=== PATIENT | female | born 2000 | race Two or more races ===

== ENCOUNTER 2020-10-22 14:01 | Outpatient (CLI) | payer OTHER | END 2020-10-22 14:02 | disposition home or self-care (01) | LOC: LAB.N 14:01 | PROVIDERS: ATTEND Advanced Practice Midwife | DX: O20.9 Hemorrhage in early pregnancy, unspecified (principal) | CPT/HCPCS: 36415; 84702; 86900; 86901 ==

== ENCOUNTER 2020-10-24 14:55 | Outpatient (CLI) | payer OTHER | END 2020-10-24 14:56 | disposition home or self-care (01) | LOC: LAB.N 14:55 | PROVIDERS: ATTEND Nurse Practitioner Obstetrics & Gynecology | DX: O20.9 Hemorrhage in early pregnancy, unspecified (principal) | CPT/HCPCS: 36415; 84702 ==

== ENCOUNTER 2020-10-27 12:44 | Outpatient (CLI) | payer OTHER | END 2020-10-27 12:45 | disposition home or self-care (01) | LOC: LAB.N 12:44 | PROVIDERS: ATTEND Nurse Practitioner Obstetrics & Gynecology | DX: O20.9 Hemorrhage in early pregnancy, unspecified (principal); O36.80X0 Pregnancy with inconclusive fetal viability, not applicable or unspecified | CPT/HCPCS: 36415; 84702 ==

== ENCOUNTER 2020-10-30 18:55 | Outpatient (CLI) | payer OTHER ==
--- NOTE | 2020-10-31 08:56 | Ultrasound Report ---
PROCEDURE: OB First Trimester w/TV INDICATIONS: VAGINAL BLEEDING FIRST TRIMESTER OUTSIDE/PRIOR DATING DATA: Last menstrual period (LMP): 09/16/2019. LMP-based estimated date of delivery (GISELE): 06/23/2020. First dating scan (date and location): 10/30/2020. Estimated date of delivery (GISELE) from first dating scan: 06/24/2021. TECHNIQUE: Real-time scanning was performed of the fetus and maternal pelvic organs, with image documentation. Endovaginal scanning was also performed to better visualize the fetus and maternal ovaries. COMPARISON: None FINDINGS: Embryo: Dichorionic diamniotic, twin intrauterine gestation is identified. Fetus A demonstrates crown -rump length of 4.4 mm measuring 6 weeks 1 day. Fetus B measures crown-rump length measuring 3.9 mm c orresponding to 6 weeks 0 days. Fetus B has a heart rate of 118 bpm. Fetus A has no detectable heart rate. There is a superior and inferior focus of subchorionic hemorrhage measuring 9 x 8 x 14 mm and 15 x 9 x 14 mm respectively. Measurement variability in dating: +/- 4 weeks by LMP, +/- 7 days by mean sac diameter (use before 6 weeks gestation if crown-rump length not able to be measured), +/- 5 days by crown-rump length (6-12 weeks gestation). Maternal organs: Ovaries demonstrate a right corpus luteal cyst. Cervix is closed.. IMPRESSION: Dichorionic diamnionic twin gestation. Fetus A and B have ultrasound gestational ages of 6 weeks 1 day 6 weeks 0 days respectively. It is no nanda that no heart tone is identified within fetus A. recommend correlation of beta hCG levels and one -week interval follow-up is recommended for further evaluation of Fetus A heart tones. Reviewed by: Jasmyn Fajardo MD on 10/31/2020 8:55 AM PDT Approved by: Jasmyn Fajardo MD on 10/31/2020 8:55 AM PDT Station ID: [id number]
== END 2020-10-30 18:56 | disposition home or self-care (01) ==
LOC: DI 18:55
PROVIDERS: ATTEND Nurse Practitioner Obstetrics & Gynecology
DX: O20.9 Hemorrhage in early pregnancy, unspecified (principal); O30.041 Twin pregnancy, dichorionic/diamniotic, first trimester; O34.81 Maternal care for other abnormalities of pelvic organs, first trimester; N83.11 Corpus luteum cyst of right ovary; Z3A.01 Less than 8 weeks gestation of pregnancy

== ENCOUNTER 2020-10-31 08:00 | Outpatient (CLI) | payer OTHER ==
[2020-10-31 18:45] LABS: MUDS CUTOFF CONCENTRATIONS CUTOFF CONC BELOW:
[2020-10-31 18:58] LABS: BILIRUBIN,URINE NEGATIVE (NEGATIVE); GLUCOSE, URINE (UA) NEGATIVE (NEGATIVE); KETONES,URINE (UA) NEGATIVE (NEGATIVE); LEUKOCYTE ESTERASE, URINE NEGATIVE (NEGATIVE); NITRITE,URINE NEGATIVE (NEGATIVE); OCCULT BLOOD,URINE NEGATIVE (NEGATIVE); PROTEIN,URINE NEGATIVE (NEGATIVE); UROBILINOGEN,URINE 0.2 (NORMAL) E.U./dL (NORMAL)
[2020-10-31 19:00] LABS: CLARITY,URINE CLEAR (CLEAR)
[2020-10-31 19:17] LABS: BACTERIA,URINE None Seen /HPF (None Seen); RBC,URINE None Seen /HPF (0-5); SQUAMOUS EPITHELIAL CELL,UR RARE Squamous (<= Few); WBC,URINE 0-3 /HPF (0-5)
[2020-10-31 19:38] LABS: AMPHETAMINE SCREEN,URINE NEGATIVE (NEGATIVE); BARBITURATE SCREEN,UR NEGATIVE (NEGATIVE); BENZODIAZEPINES SCREEN, URINE NEGATIVE (NEGATIVE); COCAINE SCREEN URINE NEGATIVE (NEGATIVE); METHADONE SCREEN, URINE NEGATIVE (NEGATIVE); METHAMPHETAMINES SCREEN, URINE NEGATIVE (NEGATIVE); OPIATE SCREEN, URINE NEGATIVE (NEGATIVE); OXYCODONE SCREEN, URINE NEGATIVE (NEGATIVE); PROPOXYPHENE SCREEN, URINE NEGATIVE (NEGATIVE); THC CANNABINOID SCREEN, URINE NEGATIVE (NEGATIVE); TRICYCLIC ANTIDEPRESSANT,URINE NEGATIVE (NEGATIVE)
== END 2020-10-31 23:59 | disposition home or self-care (01) ==
LOC: LAB.R 08:00
PROVIDERS: ATTEND Advanced Practice Midwife
DX: O36.80X0 Pregnancy with inconclusive fetal viability, not applicable or unspecified (principal); O20.9 Hemorrhage in early pregnancy, unspecified
CPT/HCPCS: 80306; 81001; 87086

== ENCOUNTER 2020-11-06 16:33 | Outpatient (CLI) | payer OTHER ==
--- NOTE | 2020-11-07 08:25 | Ultrasound Report ---
PROCEDURE: OB First Trimester w/TV INDICATIONS: VAG BLEEDING IN 1ST TRIMESTER OUTSIDE/PRIOR DATING DATA: Last menstrual period (LMP): 09/16/2020. LMP-based estimated date of delivery (GISELE): 06/23/2021. First dating scan (date and location): 10/30/2020. Estimated date of delivery (GISELE) from first dating scan: 06/24/2021. TECHNIQUE: Real-time scanning was performed of the fetus and maternal pelvic organs, with image documentation. Endovaginal scanning was also performed to better visualize the fetus and maternal ovaries. COMPARISON: 10/30/2020 similar study FINDINGS: Embryo: [place]-rump length 4 mm correlates with a gestational age of 6 weeks 0 days, +/- 5 days. Feta l cardiac activity is observed at 118 bpm. Yolk sac is observed within the gestational sac. Measurement variability in dating: +/- 4 weeks by LMP, +/- 7 days by mean sac diameter (use before 6 weeks gestation if crown-rump length not able to be measured), +/- 5 days by crown-rump length (6-12 weeks gestation). Maternal organs: Ovaries normal considering gestational status.. IMPRESSION: Cardiac activity observed within the intrauterine gestation, with nodularity projected to be centered on 06/24/2021. Reviewed by: Florentin Medina MD on 11/07/2020 8:24 AM PDT Approved by: Florentin Medina MD on 11/07/2020 8:24 AM PDT Station ID: [id number]
== END 2020-11-06 16:34 | disposition home or self-care (01) ==
LOC: DI 16:33
PROVIDERS: ATTEND Advanced Practice Midwife
DX: O36.80X0 Pregnancy with inconclusive fetal viability, not applicable or unspecified (principal); O20.9 Hemorrhage in early pregnancy, unspecified; Z3A.01 Less than 8 weeks gestation of pregnancy

== ENCOUNTER 2020-11-25 18:43 | Outpatient (CLI) | payer MEDICAID ==
--- NOTE | 2020-11-25 20:39 | Ultrasound Report ---
PROCEDURE: OB First Trimester w/TV INDICATIONS: SUPERV HIGH RISK PREG, VAIBILITY AND FU VANISHING TWIN OUTSIDE/PRIOR DATING DATA: Last menstrual period (LMP): 10/04/2020. LMP-based estimated date of delivery (GISELE): 06/23/2021. First dating scan (date and location): 10/30/2020 per provider Alaina Pinedo. Estimated date of delivery (GISELE) from first dating scan: 06/24/2021 Estimated date of delivery (GISELE): 06/23/2021 (based on LMP, per patient's provider). TECHNIQUE: Real-time scanning was performed of the fetus and maternal pelvic organs, with image documentation. Endovaginal scanning was also performed to better visualize the fetus and maternal ovaries. COMPARISON: Ultrasound 11/06/2020 and 10/30/2020 FINDINGS: Embryo: Dichorionic diamniotic twin gestation is again seen. As on prior studies, no cardiac a ctivity is seen for twin A (located more anteriorly within the uterus). Twin A has a crown-rump lengt h of 5 mm, not significantly changed when compared to the exams from 10/30/2020 and 11/06/2020. A perig estational sac hemorrhage is seen adjacent to twin A measuring 1.3 x 0.8 x 1.5 cm Twin B (located more posteriorly within the uterus) does not demonstrate significant interval growth, with crown-rump length measuring 1.25 cm, compared to 1.14 cm previously. No heart rate is sujatha ntified for twin B on this study. Measurement variability in dating: +/- 4 weeks by LMP, +/- 7 days by mean sac diameter (use before 6 weeks gestation if crown-rump length not able to be measured), +/- 5 days by crown-rump length (6-12 weeks gestation). Maternal organs: Ovaries demonstrate a right corpus luteum cyst.. IMPRESSION: 1. Intrauterine twin is redemonstrated. 2. No cardiac activity is seen in twin B, which is new when compared to the ultrasound from , and is diagnostic for early failure. Twin B does not demonstrate significant inter katharine growth when compared to the prior ultrasound. 3. Twin A again does not demonstrate interval growth or cardiac activity. Perigestational sac hemorrhage again noted adjacent to twin A. Preliminary findings conveyed to the identification and records commander PCP, Cally BILL, by the subsurface augmentee operator at the [facility] of the exam. Reviewed by: Dayne Childress MD on 11/25/2020 8:38 PM PDT Approved by: Dayne Childress MD on 11/25/2020 8:38 PM PDT Station ID: [id number]
== END 2020-11-25 18:44 | disposition home or self-care (01) ==
LOC: DI 18:43
PROVIDERS: ATTEND Nurse Practitioner Obstetrics & Gynecology
DX: O09.891 Supervision of other high risk pregnancies, first trimester (principal)

== ENCOUNTER 2020-12-08 12:59 | Day surgery (SDC) | payer MEDICAID ==
[2020-12-08] MEDS ORDERED: SODIUM CHLORIDE 0.9% 1,000 ML IV STA (13:10)
[2020-12-08] MEDS ORDERED: HYDROmorphone 1 MG/ML CARPUJECT IVP STA ×2 (13:10→13:37)
--- NOTE | 2020-12-08 13:17 | ED Physician Documentation ---
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 Today started having heavy cramping and bleeding. She states that she has been followed by the [facility] clinic across the street. She states she is soaking through over a pad an hour. Review of Systems Ten Systems: 10 systems reviewed and negative Constitutional: denies: Fever, Chills GI: denies: Vomiting, Diarrhea Skin: denies: Rash Neurologic: denies: Headache PD PAST MEDICAL HISTORY - Past Medical History Past Medical History: No Endocrine/Autoimmune: Other - Past Surgical History Past Surgical History: No - Present Medications Home Medications: Ambulatory Orders Medication Instructions Recorded Confirmed Docusate Sodium Oral Soln [Colace] 100 mg PO BID #20 udc 12/17/13 polyethylene glycoL 3350 [Miralax] 17 gm PO DAILY #1 bottle 12/17/13 Acetaminophen [Acetaminophen Extra 1,000 mg PO Q8H PRN #60 tablet 12/08/20 Strength] Docusate Sodium 100Mg Capsule 100 - 200 mg PO BID PRN #60 cap 12/08/20 [Colace 100Mg Capsule] Doxycycline Monohydrate [Avidoxy] 200 mg PO ONCE #2 tablet 12/08/20 Ibuprofen [Motrin] 600 mg PO Q6H PRN #60 tab 12/08/20 oxyCODONE [Roxicodone] 2.5 - 5 mg PO Q4H PRN #10 tablet 12/08/20 - Allergies Allergies/Adverse Reactions: Allergies Allergy/AdvReac Type Severity Reaction Status Date / Time No Known Drug Allergies Allergy Verified 12/08/20 13:04 - Social History Does the pt smoke?: No Smoking Status: Never smoker Does the pt drink ETOH?: No Does the pt have substance abuse?: No - Immunizations Immunizations are current?: Yes Immunizations: TDAP current <10years - POLST Patient has POLST: No PD ED PE NORMAL - Vitals Vital signs reviewed: Yes - General General: Alert and oriented X 3, No acute distress - HEENT HEENT: PERRL, Moist mucous membranes - Neck Neck: Supple, no meningeal sign - Cardiac Cardiac: RRR - Respiratory Respiratory: No respiratory distress, Clear bilaterally - Abdomen Abdomen: Soft, Other (diffusely tender to palpation across the lower abdomen. ) - Derm Derm: Warm and dry - Extremities Extremities: No edema, No calf tenderness / cord - Neuro Neuro: Alert and oriented X 3 - Psych Psych: Normal mood, Normal affect Results - Vitals Vitals: Vital Signs - 24 hr 12/08/20 12/08/20 12/08/20 13:04 13:44 14:14 Temperature 36.5 C Heart Rate 72 64 85 Respiratory 18 15 20 Rate Blood Pressure 144/74 H 143/100 H 137/94 H O2 Saturation 100 100 100 12/08/20 12/08/20 12/08/20 14:30 15:00 15:52 Temperature Heart Rate 91 69 74 Respiratory 21 20 16 Rate Blood Pressure 146/90 H 140/75 H 110/60 O2 Saturation 100 99 100 12/08/20 12/08/20 12/08/20 16:00 16:05 16:10 Temperature Heart Rate 74 93 99 Respiratory 21 19 16 Rate Blood Pressure 115/69 123/65 120/82 H O2 Saturation 100 100 100 12/08/20 12/08/20 12/08/20 16:15 16:35 16:49 Temperature 36.7 C Heart Rate 107 H 106 H 93 Respiratory 14 16 16 Rate Blood Pressure 130/76 128/67 122/67 O2 Saturation 100 Oxygen O2 Source Room air - Labs Labs: Laboratory Tests 12/08/20 12/08/20 12/08/20 13:14 13:14 13:14 WBC 10.2 RBC 4.65 Hgb 13.1 Hct 36.9 L MCV 79.4 L MCH 28.2 MCHC 35.5 RDW 13.1 Plt Count 240 MPV 10.4 Neut # (Auto) 6.9 H Lymph # (Auto) 2.4 [place] # (Auto) 0.7 Eos # (Auto) 0.1 Baso # (Auto) 0.0 Absolute Nucleated RBC 0.00 Nucleated RBC % 0.0 Sodium 139 Potassium 3.2 L Chloride 107 Carbon Dioxide 20 L Anion Gap 12.0 BUN 7 Creatinine 0.6 Estimated GFR (MDRD) 126 Glucose 125 H Calcium 9.2 Total Bilirubin 0.9 AST 19 ALT 14 Alkaline Phosphatase 54 Total Protein 7.4 Albumin 4.2 Globulin 3.2 Albumin/Globulin Ratio 1.3 Lipase 25 HCG, Quant Nasal Adenovirus (PCR) Nasal B. parapertussis DNA (PCR) Nasal Coronavir 229E PCR Nasal Coronavir HKU1 PCR Nasal Coronavir NL63 PCR Nasal Coronavir OC43 PCR Nasal Enterovir/Rhinovir PCR Nasal Influenza B PCR Nasal Influenza A PCR Nasal Parainfluen 1 PCR Nasal Parainfluen 2 PCR Nasal Parainfluen 3 PCR Nasal Parainfluen 4 PCR Nasal RSV (PCR) Nasal B.pertussis DNA PCR Nasal C.pneumoniae (PCR) David Human Metapneumo PCR Nasal M.pneumoniae (PCR) Nasal SARS-CoV-2 (PCR) Blood Type O POSITIVE Antibody Screen NEGATIVE 12/08/20 12/08/20 13:14 13:44 WBC RBC Hgb Hct MCV MCH MCHC RDW Plt Count MPV Neut # (Auto) Lymph # (Auto) [place] # (Auto) Eos # (Auto) Baso # (Auto) Absolute Nucleated RBC Nucleated RBC % Sodium Potassium Chloride Carbon Dioxide Anion Gap BUN Creatinine Estimated GFR (MDRD) Glucose Calcium Total Bilirubin AST ALT Alkaline Phosphatase Total Protein Albumin Globulin Albumin/Globulin Ratio Lipase HCG, Quant 8813.00 Nasal Adenovirus (PCR) NOT DETECTED Nasal B. parapertussis DNA (PCR) NOT DETECTED Nasal Coronavir 229E PCR NOT DETECTED Nasal Coronavir HKU1 PCR NOT DETECTED Nasal Coronavir NL63 PCR NOT DETECTED Nasal Coronavir OC43 PCR NOT DETECTED Nasal Enterovir/Rhinovir PCR NOT DETECTED Nasal Influenza B PCR NOT DETECTED Nasal Influenza A PCR NOT DETECTED Nasal Parainfluen 1 PCR NOT DETECTED Nasal Parainfluen 2 PCR NOT DETECTED Nasal Parainfluen 3 PCR NOT DETECTED Nasal Parainfluen 4 PCR NOT DETECTED Nasal RSV (PCR) NOT DETECTED Nasal B.pertussis DNA PCR NOT DETECTED Nasal C.pneumoniae (PCR) NOT DETECTED David Human Metapneumo PCR NOT DETECTED Nasal M.pneumoniae (PCR) NOT DETECTED Nasal SARS-CoV-2 (PCR) NOT DETECTED Blood Type Antibody Screen - Rads (name of study) pelvic US Radiology: Prelim report reviewed, EMP read contemporaneously, See rad report PD MEDICAL DECISION MAKING - ED course Complexity details: reviewed results, re-evaluated patient, considered differential, d/w patient, d/w inbound sales consultant ED course: 20-year-old female with an ongoing miscarriage now with heavy bleeding. Discussed the case with Dr. Black, OB on-call who will take to the OR for D&C. Pain controlled in the emergency department. This document was made in part using voice recognition software. While efforts are made to proofread this document, sound alike and grammatical errors may occur. IMPRESSION: Twin demise, each twin, with estimated current gestational age by crown-rump length of only 7 weeks 0 days-7 weeks 1 day with an expected gestational age from would be 11 weeks 5 days from first OB ultrasound. cardiac activity was absent at each twin. Departure - Departure Disposition: ED Transfer to [facility] Clinical Impression: Miscarriage, Uterine hemorrhage Condition: Stable Discharge Date/Time: 12/08/20 15:01
[2020-12-08 13:20] LABS: BASOPHILS % (AUTO) 0.2 %; EOSINOPHILS # (AUTO) 0.1 10^3/uL (0.0-0.7); EOSINOPHILS % (AUTO) 0.9 %; HCT - HEMATOCRIT 36.9 % (37.0-47.0); HGB - HEMOGLOBIN 13.1 g/dL (12.0-16.0); LYMPHOCYTES # (AUTO) 2.4 10^3/uL (1.5-3.5); LYMPHOCYTES % (AUTO) 23.7 %; MEAN CORPUSCULAR HEMOGLOBIN 28.2 pg (27.0-31.0); MEAN CORPUSCULAR HGB CONC 35.5 g/dL (32.0-36.0); MEAN CORPUSCULAR VOLUME 79.4 fL (81.0-99.0); MEAN PLATELET VOLUME 10.4 fL (7.9-10.8); MONOCYTES # (AUTO) 0.7 10^3/uL (0.0-1.0); MONOCYTES % (AUTO) 6.9 %; NEUTROPHILS # (AUTO) 6.9 10^3/uL (1.5-6.6); NEUTROPHILS % (AUTO) 68.1 %; PLT - PLATELET COUNT 240 10^3/uL (130-450); RED BLOOD COUNT 4.65 10^6/uL (4.20-5.40); RED CELL DISTRIBUTION WIDTH 13.1 % (12.0-15.0); WHITE BLOOD COUNT 10.2 x10^3/uL (4.8-10.8)
[2020-12-08 13:58] LABS: ALBUMIN 4.2 g/dL (3.2-5.5); ALBUMIN/GLOBULIN RATIO 1.3 (1.0-2.2); BILIRUBIN,TOTAL 0.9 mg/dL (0.2-1.0); CALCIUM 9.2 mg/dL (8.5-10.3); CREATININE 0.6 mg/dL (0.4-1.0); POTASSIUM 3.2 mmol/L (3.5-5.0); TOTAL PROTEIN 7.4 g/dL (6.7-8.2)
--- NOTE | 2020-12-08 14:46 | ANESTHESIA ---
Pre-Anesthesia VS, & Labs - Diagnosis Missed AB - Procedure Suction D&C Vital Signs: Temp Pulse Resp BP Pulse Ox 36.5 C 91 21 146/90 H 100 12/08/20 13:04 12/08/20 14:30 12/08/20 14:30 12/08/20 14:30 12/08/20 14:30 Height: 5 ft 1 in Weight (kg): 61.235 kg Body Mass Index: 25.4 BMI Classification: Overweight - NPO >8 hours - Is Patient ?: Yes - Lab Results Current Lab Results: Laboratory Tests 12/08/20 13:14: HCG, Quant 8813.00 12/08/20 13:14: Sodium 139, Potassium 3.2 L, Chloride 107, Carbon Dioxide 20 L, Anion Gap 12.0, BUN 7, Creatinine 0.6, Estimated GFR (MDRD) 126, Glucose 125 H, Calcium 9.2, Total Bilirubin 0.9, AST 19, ALT 14, Alkaline Phosphatase 54, Total Protein 7.4, Albumin 4.2, Globulin 3.2, Albumin/Globulin Ratio 1.3, Lipase 25 12/08/20 13:14: WBC 10.2, RBC 4.65, Hgb 13.1, Hct 36.9 L, MCV 79.4 L, MCH 28.2, MCHC 35.5, RDW 13.1, Plt Count 240, MPV 10.4, Neut # (Auto) 6.9 H, Lymph # (Auto) 2.4, [place] # (Auto) 0.7, Eos # (Auto) 0.1, Baso # (Auto) 0.0, Absolute Nucleated RBC 0.00, Nucleated RBC % 0.0 12/08/20 13:14: Blood Type O POSITIVE, Antibody Screen NEGATIVE Fish Bones: 12/08/20 13:14 12/08/20 13:14 Home Medications and Allergies Allergies/Adverse Reactions: Allergies Allergy/AdvReac Type Severity Reaction Status Date / Time No Known Drug Allergies Allergy Verified 12/08/20 13:04 Anes History & Medical History - Anesthetic History Anesthesia Complications: reports: No previous complications - Medical History Cardiovascular: reports: None Pulmonary: reports: None Gastrointestinal: reports: None Urinary: reports: None Neuro: reports: None Musculoskeletal: reports: None Endocrine/Autoimmune: reports: Other (sickle cell trait) Blood Disorders: reports: None Skin: reports: None Smoking Status: Never smoker Psychosocial: reports: No issues indicated History of Cancer?: No - Surgical History Eyes Ears Nose Throat (EENT): reports: Other (oral surgery) Exam General: Alert, Oriented x3, Cooperative, No acute distress Dental: WNL Mouth Openin Fingerbreadth Neck Mobility: Normal Mallampati classification: I Thyromental Distance: 4-6 cm Mental/Cognitive Status: Alert/Oriented X3, Normal for patient Plan Anesthesia Type: General Regional Block: Per Surgeon's request for Post Op pain control Consent for Procedure(s) Verified and Reviewed: Yes Code Status: Attempt Resuscitation ASA classification: 2-Mild systemic disease Is this case an emergency?: Yes
[2020-12-08] MEDS ORDERED: MIDAZOLAM 2 MG/2 ML VIAL ONE (14:47)
[2020-12-08] MEDS ORDERED: fentaNYL 100 MCG/2 ML VIAL ONE (14:48)
[2020-12-08] MEDS ORDERED: PROPOFOL 200 MG/20 ML VIAL IVP ONE (14:48)
[2020-12-08] MEDS ORDERED: LIDOCAINE-MPF 2% 5 ML VIAL ONE (14:48)
[2020-12-08] MEDS ORDERED: NALOXONE 0.4 MG/ML VIAL IVP PRN (14:51)
[2020-12-08] MEDS ORDERED: MORPHINE 2 MG/ML CARPUJECT IVP PRN (14:51)
[2020-12-08] MEDS ORDERED: ATROPINE ABBOJECT 1 MG/10 ML SYRINGE IVP PRN (14:51)
[2020-12-08] MEDS ORDERED: ONDANSETRON 4 MG/2 ML VIAL IVP PRN (14:51)
[2020-12-08] MEDS ORDERED: fentaNYL 100 MCG/2 ML VIAL IVP PRN (14:51)
[2020-12-08] MEDS ORDERED: HYDROmorphone 0.5 MG/0.5 ML SYRINGE IVP PRN (14:51)
[2020-12-08] MEDS ORDERED: miSOPROStoL 200 MCG TABLET ONE (14:52)
[2020-12-08] MEDS ORDERED: METHYLERGONOVINE 0.2 MG/ML VIAL ONE (14:53)
[2020-12-08] MEDS ORDERED: CARBOPROST TROMETHAMINE 250 MCG/ML AMP IM ONE (14:53)
[2020-12-08] MEDS ORDERED: LIDOCAINE MPF 2%-EPI 1:200000 20 ML VIAL ONE (14:54)
[2020-12-08] MEDS ORDERED: BUPIVACAINE 0.5% PF 30 ML VIAL ONE (14:54)
[2020-12-08] MEDS ORDERED: LACTATED RINGERS 1,000 ML IV SCH (15:00)
[2020-12-08 15:08] LABS: B. PARAPERTUSSIS- RESP PCR PAN NOT DETECTED; B. PERTUSSIS- RESP PCR PANEL NOT DETECTED; C. PNEUMONIAE- RESP PCR PANEL NOT DETECTED; CORONAVIRUS 229E-RESP PCR NOT DETECTED; CORONAVIRUS HKU1-RESP PCR NOT DETECTED; CORONAVIRUS NL63-RESP PCR NOT DETECTED; CORONAVIRUS OC43-RESP PCR NOT DETECTED; HUMAN METAPNEUMOVIRUS NOT DETECTED; INFLUENZA A- RESP PCR PANEL NOT DETECTED; INFLUENZA B - RESP PCR PANEL NOT DETECTED; M. PNEUMONIAE- RESP PCR PANEL NOT DETECTED; PARAINFLUENZA VIRUS 1 NOT DETECTED; PARAINFLUENZA VIRUS 2 NOT DETECTED; PARAINFLUENZA VIRUS 3 NOT DETECTED; PARAINFLUENZA VIRUS 4 NOT DETECTED; RHINOVIRUS/ENTEROVIRUS NOT DETECTED; RSV- RESP PCR PANEL NOT DETECTED; SARS-CoV-2 -RESP PCR PANEL NOT DETECTED
[2020-12-08] MEDS ORDERED: DEXAMETHASONE 4 MG/ML VIAL ONE (15:13)
[2020-12-08] MEDS ORDERED: ONDANSETRON 4 MG/2 ML VIAL ONE (15:13)
[2020-12-08] MEDS ORDERED: ceFAZolin 1 GM VIAL ONE (15:26)
--- NOTE | 2020-12-08 15:35 | Ultrasound Report ---
PROCEDURE: OB First Trimester w/TV INDICATIONS: miscarriage,twins OUTSIDE/PRIOR DATING DATA: Last menstrual period (LMP): 09/16/2020. LMP-based estimated date of delivery (GISELE): 06/23/2021. First dating scan (date and location): 10/30/2020. Estimated date of delivery (GISELE) from first dating scan: [facility] 06/23/2021. TECHNIQUE: Real-time scanning was performed of the fetus and maternal pelvic organs, with image documentation. Endovaginal scanning was also performed to better visualize the fetus and maternal ovaries. COMPARISON: Prior OB ultrasound studies for this twin gestation. FINDINGS: [place]-rump length for twin A and twin B range from 1.0-1.02 with estimated gestational age ranging between 7 weeks 0 days and 7 weeks 1 day. cardiac activity was absent for both twins. The estimated gestational age from initial ultrasound would project 11 weeks 5 days gestational age i nstead of 7 weeks 0 days. Embryo: Despite prolonged evaluation no cardiac activity was observed at either twin. Measurement variability in dating: +/- 4 weeks by LMP, +/- 7 days by mean sac diameter (use before 6 weeks gestation if crown-rump length not able to be measured), +/- 5 days by crown-rump length (6-12 weeks gestation). Maternal organs: Ovaries right corpus luteum cyst.. IMPRESSION: Twin demise, each twin, with estimated current gestational age by crown-rump length of only 7 weeks 0 days-7 weeks 1 day with an expected gestational age from would be 11 weeks 5 days from first OB ultr asound. cardiac activity was absent at each twin. Reviewed by: Florentin Medina MD on 12/08/2020 3:33 PM PDT Approved by: Florentin Medina MD on 12/08/2020 3:33 PM PDT Station ID: [id number]
[2020-12-08] MEDS ORDERED: SILVER NITRATE APPLICATOR TOP ONE ×2 (15:38→15:39)
[2020-12-08] MEDS ORDERED: BUPIVACAINE 0.5% PF 30 ML VIAL INFIL ONE (15:40)
[2020-12-08] MEDS ORDERED: LIDOCAINE 2%-EPI 1:100000 20 ML MDV SUBQ ONE (15:40)
[2020-12-08] MEDS ORDERED: KETOROLAC 30 MG/ML VIAL ONE (15:42)
[2020-12-08] MEDS ORDERED: LACTATED RINGERS 1,000 ML IV ONE (15:55)
[2020-12-08] MEDS ORDERED: oxyCODONE 5 MG TABLET PO PRN (16:05)
--- NOTE | 2020-12-08 16:15 | ANESTHESIA POST OP EVALUATION ---
Anesthesia Post Eval - Post Anesthesia Eval Vitals: Last Vital Signs Temp 36.5 C 12/08/20 13:04 Pulse 99 12/08/20 16:10 Resp 16 12/08/20 16:10 BP 120/82 H 12/08/20 16:10 Pulse Ox 100 12/08/20 16:10 CV Function Including HR & BP: Stable Pain Control: Satisfactory Nausea & Vomiting: Negative Mental Status: Baseline Respiratory Status: Airway Patent Hydration Status: Satisfactory Anesthesia Complications: None
--- NOTE | 2020-12-08 16:15 | OPERATIVE REPORT ---
Operative Report - General Procedure Date: 12/08/20 Planned Procedure: Suction D&C Pre-Op Diagnosis: Incomplete SAB with hemorrhage Procedure Performed: Suction D&C Post Op Diagnosis: Same - Procedure Note Primary Surgeon: Janell Black MD Anesthesia Provider: Carlos Obrien CRNA Anesthesia Technique: General ET tube Pathology: Uterine contents/Products of conception IV Fluids (mL): 1,000 Estimated Blood Loss (mL): 50 (Surgical EBL, had additional blood loss with hemorrhage) Urine Output (mL): 200 Indications: Patient is a 20 yo with known incomplete SAB who was scheduled today for preoperative appointment for scheduled D&C. While preparing for her clinic visit, she began to experience severe abdominal pain and started to bleed heavily. She soaked through her pad and clothing and continued to have heavy blood loss in the ED. Decision was made to proceed directly to D&C today. Findings: Large accumulation of tissue at external cervical os. Otherwise enlarged uterus to about 6 weeks size with active bleeding. Cervix dilated to about 1 cm. Complications: None - Other Other Information/Narrative: Risks benefits and alternatives to the procedure were reviewed. Consent was again confirmed. Patient was taken to the operating room where she underwent general anesthesia. She was positioned in dorsolithotomy position with legs resting in yellowfin stirrups. She was prepped and draped in the usual sterile fashion. Cefazolin 2g IV given. Preoperative checklist was performed. Exam under anesthesia was performed. Speculum was placed in the vagina and the cervix was visualized. Single-tooth tenaculum was placed at the anterior cervical lip. Paracervical block was administered using a total of 20 cc of 1% lidocaine with epinephrine mixed with 0.25% bupivicaine was injected at the 4:00 and 8:00 positions lateral to the portio of the cervix. A large plug of thick tissue was noted at the external os. It was partially cleared with ring forceps but a substantial about of residual tissue was present. The cervical os was already dilated enough to accommodate the caliber of the 7 mm flexible suction catheter. The 7 mm flexible catheter was inserted into the cervical os. Tissue was cleared from cavity in 3 passes. Gentle sharp curettage was performed to confirm clearance of tissue from the uterine cavity. Single toothed tenaculum was removed and good hemostasis was noted. Procedure was well tolerated and without complication.
--- NOTE | 2020-12-08 17:01 | HISTORY & PHYSICAL EXAMINATION ---
HPI - History Obtained From Records Reviewed: Old records reviewed History obtained from: Patient Exam limitations: No limitations - History of Present Illness HPI Comment/Other: Patient is a 20 yo with incomplete SAB here with active hemorrhage. Patient was diagnosed with an incomplete SAB in clinic on 11/25/20. She was c onfirmed to be Rh positive. She opted for surgical management of the SAB and was scheduled for a preop appointment in clinic today. While preparing for the appointment, she started to have significant abdominal pain and started to pass a large volume of blood. Upon presentation to the ED, she was soaking through her pad and her clothing. The decision was made to proceed to the OR for surgical management. No fever. No nausea/vomiting. Formal US was obtained prior to the procedure to determine whether products had passed and to estimate the gestational age of the embryo(s). She was noted to fragoso ve a twin gestation with disparate age at time of demise. US confirmed demise in both twins, estimated about 7 weeks development at time of demise. PMH: Sickle cell trait PSH: wisdom teeth extraction Oral abscess removal OB HX: G1 Has not had a pap smear to date, turned 20 within the last two weeks No STIs. SOC HX: Lives in [place] with Not currently working. 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 PMH/PSH - Past Medical History Cardiovascular: positive: None Respiratory: positive: None Neuro: positive: None Endocrine/Autoimmune: positive: Other (sickle cell trait) GI: positive: None : positive: None Musculoskeletal: positive: None Derm: positive: None - Past Surgical History HEENT: positive: Other (oral surgery) Social & Family Hx - Social History Does the pt smoke?: No Smoking Status: Never smoker Does the pt drink ETOH?: No Does the pt have substance abuse?: No - POLST Patient has POLST: No Meds/Allgy - Home Medications Home Medications: Ambulatory Orders Medication Instructions Recorded Confirmed Docusate Sodium Oral Soln [Colace] 100 mg PO BID #20 udc 12/17/13 polyethylene glycoL 3350 [Miralax] 17 gm PO DAILY #1 bottle 12/17/13 Acetaminophen [Acetaminophen Extra 1,000 mg PO Q8H PRN #60 tablet 12/08/20 Strength] Docusate Sodium 100Mg Capsule 100 - 200 mg PO BID PRN #60 cap 12/08/20 [Colace 100Mg Capsule] Doxycycline Monohydrate [Avidoxy] 200 mg PO ONCE #2 tablet 12/08/20 Ibuprofen [Motrin] 600 mg PO Q6H PRN #60 tab 12/08/20 oxyCODONE [Roxicodone] 2.5 - 5 mg PO Q4H PRN #10 tablet 12/08/20 - Allergies Allergies/Adverse Reactions: Allergies Allergy/AdvReac Type Severity Reaction Status Date / Time No Known Drug Allergies Allergy Verified 12/08/20 13:04 Review of Systems - Other Findings Other Findings: As per HPI, otherwise remaining systems are negative. Exam - Vital Signs Reviewed Vital Signs: Yes Vital Signs: Vital Signs x48h Temp Pulse Resp BP Pulse Ox 12/08/20 16:35 98.1 F 106 H 16 128/67 12/08/20 16:15 107 H 14 130/76 100 12/08/20 16:10 99 16 120/82 H 100 12/08/20 16:05 93 19 123/65 100 12/08/20 16:00 74 21 115/69 100 12/08/20 15:52 74 16 110/60 100 12/08/20 15:00 69 20 140/75 H 99 12/08/20 14:30 91 21 146/90 H 100 12/08/20 14:14 85 20 137/94 H 100 12/08/20 13:44 64 15 143/100 H 100 12/08/20 13:04 97.7 F 72 18 144/74 H 100 - Physical Exam General Appearance: positive: Moderate distress Cardiovascular: positive: Regular rate & rhythm Peripheral Pulses: positive: 1+ Abdomen: positive: Other (soft and non-distended. TTP in lower abdomen/suprapubic area.) Skin: positive: Color nml Extremities: positive: Non-tender Neurologic/Psychiatric: positive: Oriented x3 Results - Lab Results Fish Bones: 12/08/20 13:14 12/08/20 13:14 Other Lab Results: Lab Results x24hrs 12/08/20 12/08/20 12/08/20 Range/Units 13:44 13:14 13:14 WBC (4.8-10.8) x10^3/uL RBC (4.20-5.40) 10^6/uL Hgb (12.0-16.0) g/dL Hct (37.0-47.0) % MCV (81.0-99.0) fL MCH (27.0-31.0) pg MCHC (32.0-36.0) g/dL RDW (12.0-15.0) % Plt Count (130-450) 10^3/uL MPV (7.9-10.8) fL Neut # (Auto) (1.5-6.6) 10^3/uL Lymph # (Auto) (1.5-3.5) 10^3/uL Carson # (Auto) (0.0-1.0) 10^3/uL Eos # (Auto) (0.0-0.7) 10^3/uL Baso # (Auto) (0.0-0.1) 10^3/uL Absolute Nucleated RBC x10^3/uL Nucleated RBC % /100WBC Sodium 139 (135-145) mmol/L Potassium 3.2 L (3.5-5.0) mmol/L Chloride 107 (101-111) mmol/L Carbon Dioxide 20 L (21-32) mmol/L Anion Gap 12.0 (6-13) BUN 7 (6-20) mg/dL Creatinine 0.6 (0.4-1.0) mg/dL Estimated GFR (MDRD) 126 (>89) Glucose 125 H (70-100) mg/dL Calcium 9.2 (8.5-10.3) mg/dL Total Bilirubin 0.9 (0.2-1.0) mg/dL AST 19 (10-42) IU/L ALT 14 (10-60) IU/L Alkaline Phosphatase 54 (42-121) IU/L Total Protein 7.4 (6.7-8.2) g/dL Albumin 4.2 (3.2-5.5) g/dL Globulin 3.2 (2.1-4.2) g/dL Albumin/Globulin Ratio 1.3 (1.0-2.2) Lipase 25 (22-51) U/L HCG, Quant 8813.00 mIU/mL Nasal Adenovirus (PCR) NOT DETECTED Nasal B. parapertussis DNA (PCR) NOT DETECTED Nasal Coronavir 229E PCR NOT DETECTED Nasal Coronavir HKU1 PCR NOT DETECTED Nasal Coronavir NL63 PCR NOT DETECTED Nasal Coronavir OC43 PCR NOT DETECTED Nasal Enterovir/Rhinovir PCR NOT DETECTED Nasal Influenza B PCR NOT DETECTED Nasal Influenza A PCR NOT DETECTED Nasal Parainfluen 1 PCR NOT DETECTED Nasal Parainfluen 2 PCR NOT DETECTED Nasal Parainfluen 3 PCR NOT DETECTED Nasal Parainfluen 4 PCR NOT DETECTED Nasal RSV (PCR) NOT DETECTED Nasal B.pertussis DNA PCR NOT DETECTED Nasal C.pneumoniae (PCR) NOT DETECTED David Human Metapneumo PCR NOT DETECTED Nasal M.pneumoniae (PCR) NOT DETECTED Nasal SARS-CoV-2 (PCR) NOT DETECTED Blood Type Antibody Screen 12/08/20 12/08/20 Range/Units 13:14 13:14 WBC 10.2 (4.8-10.8) x10^3/uL RBC 4.65 (4.20-5.40) 10^6/uL Hgb 13.1 (12.0-16.0) g/dL Hct 36.9 L (37.0-47.0) % MCV 79.4 L (81.0-99.0) fL MCH 28.2 (27.0-31.0) pg MCHC 35.5 (32.0-36.0) g/dL RDW 13.1 (12.0-15.0) % Plt Count 240 (130-450) 10^3/uL MPV 10.4 (7.9-10.8) fL Neut # (Auto) 6.9 H (1.5-6.6) 10^3/uL Lymph # (Auto) 2.4 (1.5-3.5) 10^3/uL Carson # (Auto) 0.7 (0.0-1.0) 10^3/uL Eos # (Auto) 0.1 (0.0-0.7) 10^3/uL Baso # (Auto) 0.0 (0.0-0.1) 10^3/uL Absolute Nucleated RBC 0.00 x10^3/uL Nucleated RBC % 0.0 /100WBC Sodium (135-145) mmol/L Potassium (3.5-5.0) mmol/L Chloride (101-111) mmol/L Carbon Dioxide (21-32) mmol/L Anion Gap (6-13) BUN (6-20) mg/dL Creatinine (0.4-1.0) mg/dL Estimated GFR (MDRD) (>89) Glucose (70-100) mg/dL Calcium (8.5-10.3) mg/dL Total Bilirubin (0.2-1.0) mg/dL AST (10-42) IU/L ALT (10-60) IU/L Alkaline Phosphatase (42-121) IU/L Total Protein (6.7-8.2) g/dL Albumin (3.2-5.5) g/dL Globulin (2.1-4.2) g/dL Albumin/Globulin Ratio (1.0-2.2) Lipase (22-51) U/L HCG, Quant mIU/mL Nasal Adenovirus (PCR) Nasal B. parapertussis DNA (PCR) Nasal Coronavir 229E PCR Nasal Coronavir HKU1 PCR Nasal Coronavir NL63 PCR Nasal Coronavir OC43 PCR Nasal Enterovir/Rhinovir PCR Nasal Influenza B PCR Nasal Influenza A PCR Nasal Parainfluen 1 PCR Nasal Parainfluen 2 PCR Nasal Parainfluen 3 PCR Nasal Parainfluen 4 PCR Nasal RSV (PCR) Nasal B.pertussis DNA PCR Nasal C.pneumoniae (PCR) David Human Metapneumo PCR Nasal M.pneumoniae (PCR) Nasal SARS-CoV-2 (PCR) Blood Type O POSITIVE Antibody Screen NEGATIVE Impression/Plan - Problem List Problem List: Incomplete SAB with active hemorrhage Reviewed R/B/A to proceeding with surgical intervention with suction D&C Written informed consent obtained. Doxycycline 100 mg po x1 in preop GCCT to be collected intraop. Confirmed Rh positive Proceed to OR for suction D&C.
[2020-12-08 18:12] VITALS: BP 126/66
[2020-12-08 22:03] LABS: CHLAMYDIA TRACHOMATIS DNA NEGATIVE (NEGATIVE); NEISSERIA GONORRHOEAE DNA NEGATIVE (NEGATIVE); TRICHOMONAS VAGINALIS DNA NEGATIVE (NEGATIVE)
== END 2020-12-08 18:16 | disposition home or self-care (01) ==
LOC: ED 12:59 → SDS 14:30 → MS2 16:50 → SDS 18:16
PROVIDERS: ATTEND Obstetrics & Gynecology
PROC: 10D17ZZ Extraction of Products of Conception, Retained, Via Natural or Artificial Opening (ICD-10-PCS; principal; 2020-12-08 14:30)
DX: O03.4 Incomplete spontaneous abortion without complication (principal); O03.1 Delayed or excessive hemorrhage following incomplete spontaneous abortion; D57.3 Sickle-cell trait; Z20.822 Contact with and (suspected) exposure to COVID-19
CPT/HCPCS: 0202U; 36415; 59812; 76801; 76817; 80053; 83690; 84702; 85025; 86850; 86900; 86901; 87491; 87591; 87661; J1170; J2210; J7120